=== PATIENT | male | born 1950 | race Caucasian/White ===

== ENCOUNTER 2020-12-15 20:05 | Observation (INO) | payer OTHER ==
--- OUTSIDE RECORDS SUMMARY | 2020-12-15 20:07 | XMS REPORT | Clinical Summary ---
:1950 Author Organization [facility] Address [address] [place] [address] Care Team Providers Name Role Phone Asked, Pcp Primary Care Provider Unavailable Allergies Active Allergy Reactions Severity Noted Date Comments Morphine 03/27/2018 Medications Medication Sig Dispensed Refills Start Date End Date Status atorvastatin (LIPITOR) Take 40 mg by 0 Active 40 MG tablet mouth daily. aspirin (ECOTRIN) 81 MG Take 81 mg by 0 Active enteric coated tablet mouth daily. omeprazole (PriLOSEC) 20 Take 20 mg by 0 Active MG capsule mouth daily. loratadine (CLARITIN) 10 Take 10 mg by 0 Active mg tablet mouth daily. 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 Medical History Medical History Date Comments Hypercholesteremia GERD (gastroesophageal reflux disease) Seasonal allergies Social History Tobacco Use Types Packs/Day Years Used Date Never Smoker Smokeless Tobacco: Never Used Alcohol Use Drinks/Week oz/Week Comments No Sex Assigned at Date Recorded Not on file Last Filed Vital Signs Not on file Plan of Treatment Health Maintenance Due Date Last Done Comments COVID-19 VACCINE (1 of 2) 1965 COLONOSCOPY SCREENING 1999 SHINGLES VACCINES (#2) 12/04/2009 10/04/2009 65+ PNEUMOCOCCAL VACCINE (2 of 2 - 2014 06/21/2015, 0 07/08/2012 PPSV23) INFLUENZA VACCINE 07/01/2020 10/04/2016, 09/20/2015, 08/12/2014, Additional history exists Implants Implanted Type Area Aluminum Boat Inspector Device Shelf Model / Identifier Expiration Serial / Date Lot Assurity Mri Dual - [id number] Cardiac N/A: [facility] 08/30/2019 [id number] / Implanted: 03/28/2018 at [facility] (Quantity not on file) Pac emaker N/A MEDICAL [id number] / Generators [id number] Lead Pace Bipolar Is-1 Endocrdl 46cm - [id number] Cardiac Pacing N/A: [facility] [employer] 07/31/20202087TC / Implanted: 03/28/2018 at [facility] (Quantity not on file) Leads or N/A CRM [id number] / Electrodes or [id number] Accessories Tendril Sts, Pacemaker Leads, Model 2087tc/52 - [id number] Cardi ac Pacing N/A: 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
[2020-12-15] MEDS ORDERED: ASPIRIN 81 MG CHEWABLE TABLET ONE (20:44)
[2020-12-15 20:47] LABS: Basophils % 0.7 % (0-1.3); Hematocrit 42.2 % (39.6-49.0); Lymphocytes % 35.1 % (15.3-44.8); MPV 10.3 fL (7.6-11.3); RBC Red Blood Cell Count 4.56 M/uL (4.33-5.43)
[2020-12-15 20:51] LABS: Protime INR 0.94
--- NOTE | 2020-12-15 21:04 | RAD REPORT ---
EXAM DESCRIPTION: RAD - Chest Single View - 12/15/2020 8:53 pm CLINICAL HISTORY: CHEST PAIN Chest pain. COMPARISON: Chest Pa And Lat (2 Views) dated 12/14/2020 FINDINGS: Portable technique limits examination quality. Rounded nodule in the left lung base is again seen, unchanged since yesterday's study. The lungs are otherwise grossly clear. The heart is normal in size. Changes of a previous CABG noted. IMPRESSION: Stable chest since yesterday's study.
[2020-12-15 21:05] LABS: ALT/SGPT 25 U/L (12-78); AST/SGOT 20 U/L (15-37); Albumin 3.3 g/dL (3.4-5.0); Alkaline Phosphatase 81 U/L (45-117); BUN Blood Urea Nitrogen 23 mg/dL (7-18); Bicarbonate 29 mmol/L (21-32); Bilirubin Direct < 0.1 mg/dL (0-0.2); Bilirubin Total 0.3 mg/dL (0.2-1.0); Glucose Level 122 mg/dL (74-106); Magnesium 2.3 mg/dL (1.8-2.4); NT PRO-BNP 78 pg/mL (<125); Potassium 3.8 mmol/L (3.5-5.1); Protein, Total 6.8 g/dL (6.4-8.2); Sodium Level 145 mmol/L (136-145); Troponin (Emerg Dept Use Only) < 0.02 ng/mL (0.0-0.045)
--- NOTE | 2020-12-15 21:20 | EDPHYS ---
Physician Documentation [facility] Name: Karel Kendall Age: 70 yrs Sex: Male : 1950 Arrival Date: 12/15/2020 Time: 20:06 Bed 15 Private MD: ED Physician Lai Linton HPI: 12/15 20:39 This 70 yrs old Male presents to ER via Ambulatory with complaints of Chest mh7 Pain. 20:39 The patient or guardian reports chest pain that is located primarily in the anterior mh7 chest wall, left. Onset: 2 day(s) ago. The pain does not radiate. Associated signs and symptoms: Pertinent positives: shortness of breath, Pertinent negatives: abdominal pain, cough, diaphoresis, dizziness, headache, lower extremity pain, lower extremity swelling, lightheadedness, nausea, near syncope, palpitations, recent travel, syncope, vomiting. The chest pain is described as sharp. Duration: The patient or guardian reports multiple episodes, that are intermittent, that wax and wane, with no pattern. Modifying factors: The symptoms are alleviated by nothing. the symptoms are aggravated by nothing. Severity of pain: At its worst the pain was moderate last night, in the emergency department the pain has improved moderately. Historical: - Allergies: 20:27 Morphine; mg2 20:27 wheat; mg2 - Home Meds: 20:27 Aspirin Oral [Active]; Lipitor Oral [Active]; Omeprazole Oral [Active]; mg2 - PMHx: 20:27 dyslipidemia; heart burn; mg2 - PSHx: 20:27 Cholecystectomy; cabg; mg2 - Immunization history:: Flu vaccine status is unknown. - Social history:: Smoking status: unknown. ROS: 20:39 Constitutional: Negative for fever, chills, and weight loss, Eyes: Negative for injury, mh7 pain, redness, and discharge, ENT: Negative for injury, pain, and discharge, Neck: Negative for injury, pain, and swelling, Abdomen/GI: Negative for abdominal pain, nausea, vomiting, diarrhea, and constipation, Back: Negative for injury and pain, : Negative for injury, bleeding, discharge, and swelling, MS/Extremity: Negative for injury and deformity, Skin: Negative for injury, rash, and discoloration, Neuro: Negative for headache, weakness, numbness, tingling, and seizure, Psych: Negative for depression, anxiety, suicide ideation, homicidal ideation, and hallucinations, Allergy/Immunology: Negative for hives, rash, and allergies, Endocrine: Negative for neck swelling, polydipsia, polyuria, polyphagia, and marked weight changes, Hematologic/Lymphatic: Negative for swollen nodes, abnormal bleeding, and unusual bruising. Exam: 20:39 Constitutional: This is a well developed, well nourished patient who is awake, alert, mh7 and in no acute distress. Head/Face: Normocephalic, atraumatic. Eyes: Pupils equal round and reactive to light, extra-ocular motions intact. Lids and lashes normal. Conjunctiva and sclera are non-icteric and not injected. Cornea within normal limits. Periorbital areas with no swelling, redness, or edema. Neck: Trachea midline, no thyromegaly or masses palpated, and no cervical lymphadenopathy. Supple, full range of motion without nuchal rigidity, or vertebral point tenderness. No Meningismus. Chest/axilla: Normal chest wall appearance and motion. Nontender with no deformity. No lesions are appreciated. Cardiovascular: Regular rate and rhythm with a normal S1 and S2. No gallops, murmurs, or rubs. Normal PMI, no JVD. No pulse deficits. Respiratory: Lungs have equal breath sounds bilaterally, clear to auscultation and percussion. No rales, rhonchi or wheezes noted. No increased work of breathing, no retractions or nasal flaring. Abdomen/GI: Soft, non-tender, with normal bowel sounds. No distension or tympany. No guarding or rebound. No evidence of tenderness throughout. Back: No spinal tenderness. No costovertebral tenderness. Full range of motion. Skin: Warm, dry with normal turgor. Normal color with no rashes, no lesions, and no evidence of cellulitis. MS/ Extremity: Pulses equal, no cyanosis. Neurovascular intact. Full, normal range of motion. Neuro: Awake and alert, GCS 15, oriented to person, place, time, and situation. Cranial nerves II-XII grossly intact. Motor strength 5/5 in all extremities. Sensory grossly intact. Cerebellar exam normal. Normal gait. Psych: Awake, alert, with orientation to person, place and time. Behavior, mood, and affect are within normal limits. Vital Signs: 20:23 BP 151 / 80; Pulse 87; Resp 18; Temp 97.7; Pulse Ox 100% on R/A; Weight 77.11 kg; mg2 Height 5 ft. 9 in. (175.26 cm); 21:43 BP 135 / 105; Pulse 68; Resp 18; Pulse Ox 99% on R/A; mg2 23:00 BP 149 / 95; Pulse 79; Resp 15; Pulse Ox 98% ; Pain 0/10; rr5 12/16 00:00 BP 141 / 90; Pulse 65; Resp 16; Pulse Ox 99% ; rr5 01:10 BP 129 / 75; Pulse 68; Resp 18; Pulse Ox 98% ; Pain 0/10; rr5 02:30 BP 132 / 85; Pulse 70; Resp 19; Pulse Ox 99% ; rr5 12/15 20:23 Body Mass Index 25.10 (77.11 kg, 175.26 cm) mg2 MDM: 12/15 21:17 Differential diagnosis: abnormal EKG, acute myocardial infarction, acute pericarditis, mh7 anxiety, coronary artery disease chest wall pain, congestive heart failure costochondritis, myocarditis, pericarditis, pleurisy, pneumonia, pneumothorax. HEART Score: History: Moderately Suspicious (1), ECG: Non specific repolarization disturbance / LBTB / PM (1), Age: > or = 65 years (2), Risk Factors: 1 or 2 risk factors (1), [Hypercholesterolemia] [Hypertension] Troponin: < or = 1 x Normal Limit (0), Total Score = 5. The patient was given aspirin in the Emergency Department. Data reviewed: vital signs, nurses notes, lab test result(s), cardiac enzymes, CBC, electrolytes, urinalysis, EKG, radiologic studies, plain films. Data interpreted: Pulse oximetry: on room air is 100 %. Interpretation: normal. Counseling: I had a detailed discussion with the patient and/or guardian regarding: the historical points, exam findings, and any diagnostic results supporting the discharge/admit diagnosis, the presence of at least one elevated blood pressure reading (>120/80) during this emergency department visit, lab results, radiology results, the need for further work-up and treatment in the hospital. 21:19 Patient medically screened. [facility] 12/15 20:27 Order name: Basic Metabolic Panel; Complete Time: 21:11 [facility] 12/15 20:27 Order name: CBC with Diff; Complete Time: 21:11 [facility] 12/15 20:27 Order name: LFT's; Complete Time: 21:11 [facility] 12/15 20:27 Order name: Magnesium; Complete Time: 21:11 [facility] 12/15 20:27 Order name: NT PRO-BNP; Complete Time: 21:11 [facility] 12/15 20:27 Order name: PT-INR; Complete Time: 21:11 [facility] 12/15 20:27 Order name: Troponin (emerg Dept Use Only); Complete Time: 21:11 [facility] 12/15 21:34 Order name: COVID-19 mg2 12/15 22:24 Order name: Urine Dipstick--Ancillary (enter results) [facility] 12/15 22:54 Order name: SARS-COV-2 RT PCR [facility] 12/16 01:20 Order name: Troponin I [facility] 12/16 05:54 Order name: CBC with Automated Diff [facility] 12/16 06:07 Order name: Basic Metabolic Panel [facility] 12/15 20:27 Order name: XRAY Chest (1 view); Complete Time: 21:11 [facility] 12/15 20:27 Order name: EKG; Complete Time: 20:28 [facility] 12/15 20:27 Order name: Cardiac monitoring; Complete Time: 20:37 [facility] 12/15 20:27 Order name: EKG - Nurse/Tech; Complete Time: 20:27 [facility] 12/15 20:27 Order name: IV Saline Lock; Complete Time: 20:37 [facility] 12/15 20:27 Order name: Labs collected and sent; Complete Time: 20:37 [facility] 12/15 20:27 Order name: O2 Per Protocol; Complete Time: 20:37 [facility] 12/15 20:27 Order name: O2 Sat Monitoring; Complete Time: 20:37 [facility] 12/15 21:54 Order name: CT Chest W/ Con [facility] 12/16 06:07 Order name: Lipid Profile [facility] 12/16 06:31 Order name: Troponin I [facility] 12/16 07:09 Order name: Hemoglobin A1c [facility] Administered Medications: 20:36 Drug: Aspirin Chewable Tablet 324 mg Route: PO; mg2 22:23 Follow up: Response: No adverse reaction mg2 21:39 Not Given (Patient Refused): Nitro-Bid Ointment 2 % 0.5 inches Transdermal once rr5 Disposition: 12/15/20 21:19 Hospitalization ordered by Lucy Fuentes for Observation. Preliminary diagnosis is Chest pain, unspecified. - Bed requested for [facility] ER HOLD. - Status is Observation. em - Condition is Stable. - Problem is new. - Symptoms have improved. Signatures: Dispatcher [employer] EDNM Radha Watson RN RN Clarence Lovell RN GORDO Jose Head RN RN [facility] Quinton Pelaez RN RN rr5 Lai Linton MD MD 7 Corrections: (The following items were deleted from the chart) 21:59 21:35 CORONAVIRUS ordered. EDNM EDNM 23:00 21:19 Hospitalization Ordered by Lucy Fuentes MD for Observation. Preliminary diagnosis is Chest pain, unspecified. Bed requested for Telemetry/MedSurg (observation). Status is Observation. Condition is Stable. Problem is new. Symptoms have improved. [facility] 12/16 14:09 12/15 23:00 12/15/2020 21:19 Hospitalization Ordered by Lucy Fuentes MD for em Observation. Preliminary diagnosis is Chest pain, unspecified. Bed requested for [facility] ER HOLD. Status is Observation. Condition is Stable. Problem is new. Symptoms have improved. mw
--- NOTE | 2020-12-15 21:20 | ER ---
Nurse's Notes [facility] Name: Karel Kendall Age: 70 yrs Sex: Male : 1950 Arrival Date: 12/15/2020 Time: 20:06 Bed 15 Private MD: Diagnosis: Chest pain, unspecified Presentation: 12/15 20:23 Chief complaint: Patient states: I have chest pain, burning sensation on my chest and mg2 shortness of breath for 2 days, i was here 2 days ago and cxr was done for me but i have not seen the report. Coronavirus screen: Client denies travel out of the [place] in the last 14 days. Ebola Screen: No symptoms or risks identified at this time. Initial Sepsis Screen: Does the patient meet any 2 criteria? No. Patient's initial sepsis screen is negative. Does the patient have a suspected source of infection? No. Patient's initial sepsis screen is negative. Risk Assessment: Do you want to hurt yourself or someone else? Patient reports no desire to harm self or others. Onset of symptoms was December 13, 2020. 20:23 Method Of Arrival: Ambulatory mg2 20:23 Acuity: REMA 3 mg2 Historical: - Allergies: 20:27 Morphine; mg2 20:27 wheat; mg2 - Home Meds: 20:27 Aspirin Oral [Active]; Lipitor Oral [Active]; Omeprazole Oral [Active]; mg2 - PMHx: 20:27 dyslipidemia; heart burn; mg2 - PSHx: 20:27 Cholecystectomy; cabg; mg2 - Immunization history:: Flu vaccine status is unknown. - Social history:: Smoking status: unknown. Screenin:39 Abuse screen: Denies threats or abuse. Denies injuries from another. Nutritional rr5 screening: No deficits noted. Tuberculosis screening: No symptoms or risk factors identified. Fall Risk IV access (20 points). Total Phillips Fall Scale indicates No Risk (0-24 pts). Assessment: 20:40 General: Appears in no apparent distress. comfortable, Behavior is calm, cooperative, rr5 appropriate for age. Pain: Complains of pain in chest Pain does not radiate. Pain currently is 2 out of 10 on a pain scale. Quality of pain is described as burning, Pain began gradually, Is intermittent. Neuro: Level of Consciousness is awake, alert, obeys commands, Oriented to person, place, time, situation. Cardiovascular: Capillary refill < 3 seconds Patient's skin is warm and dry. Respiratory: Reports shortness of breath Airway is patent Respiratory effort is even, unlabored, Respiratory pattern is regular, symmetrical. GI: No signs and/or symptoms were reported involving the gastrointestinal system. : No signs and/or symptoms were reported regarding the genitourinary system. EENT: No signs and/or symptoms were reported regarding the EENT system. Derm: Skin is intact, is healthy with good turgor, Skin temperature is warm. Musculoskeletal: Circulation, motion, and sensation intact. Capillary refill < 3 seconds. 21:42 Reassessment: Patient appears in no apparent distress at this time. Patient and/or mg2 family updated on plan of care and expected duration. Pain level reassessed. Patient is alert, oriented x 3, equal unlabored respirations, skin warm/dry/pink. 21:42 Reassessment: patient agreed to be admitted. Jovani-hospitalist at bedside. mg2 23:00 Reassessment: Patient appears in no apparent distress at this time. Patient is alert, rr5 oriented x 3, equal unlabored respirations, skin warm/dry/pink. Patient states feeling better. Patient states symptoms have improved. 12/16 00:00 Reassessment: Patient appears in no apparent distress at this time. Patient is alert, rr5 oriented x 3, equal unlabored respirations, skin warm/dry/pink. awaiting for room assignment. 01:30 Reassessment: Patient appears in no apparent distress at this time. Patient and/or rr5 family updated on plan of care and expected duration. Pain level reassessed. Patient is alert, oriented x 3, equal unlabored respirations, skin warm/dry/pink. 02:30 Reassessment: Patient appears in no apparent distress at this time. Patient is alert, rr5 oriented x 3, equal unlabored respirations, skin warm/dry/pink. no complaints made, watching TV Patient denies pain at this time. Vital Signs: 12/15 20:23 BP 151 / 80; Pulse 87; Resp 18; Temp 97.7; Pulse Ox 100% on R/A; Weight 77.11 kg; mg2 Height 5 ft. 9 in. (175.26 cm); 21:43 BP 135 / 105; Pulse 68; Resp 18; Pulse Ox 99% on R/A; mg2 23:00 BP 149 / 95; Pulse 79; Resp 15; Pulse Ox 98% ; Pain 0/10; rr5 12/16 00:00 BP 141 / 90; Pulse 65; Resp 16; Pulse Ox 99% ; rr5 01:10 BP 129 / 75; Pulse 68; Resp 18; Pulse Ox 98% ; Pain 0/10; rr5 02:30 BP 132 / 85; Pulse 70; Resp 19; Pulse Ox 99% ; rr5 12/15 20:23 Body Mass Index 25.10 (77.11 kg, 175.26 cm) mg2 ED Course: 12/15 20:06 Patient arrived in ED. cl3 20:13 Lai Linton MD is Attending Physician. mh7 20:23 Jose Head, GORDO is Primary Nurse. mg2 20:25 Triage completed. mg2 20:25 Arm band placed on. mg2 20:30 EKG done, by ED staff, reviewed by Lai Linton MD. rr5 20:38 Inserted saline lock: 20 gauge in right forearm, using aseptic technique. Blood rr5 collected. 20:39 Patient has correct armband on for positive identification. Placed in gown. Bed in low rr5 position. Call light in reach. monitoring engineer on. Pulse ox on. NIBP on. 20:52 XRAY Chest (1 view) In Process Unspecified. EDMS 21:19 Lucy Fuentes MD is Hospitalizing Provider. mh7 21:41 COVID swab sent to lab. mg2 12/16 03:04 No provider procedures requiring assistance completed. Patient admitted, IV remains in rr5 place. intact, No redness/swelling at site. Patient maintains SpO2 saturation greater than 95% on room air. 03:21 Report given to GORDO Lanier. mg2 11:02 Primary Nurse role handed off by Jose Head, GORDO eb Administered Medications: 12/15 20:36 Drug: Aspirin Chewable Tablet 324 mg Route: PO; mg2 22:23 Follow up: Response: No adverse reaction mg2 21:39 Not Given (Patient Refused): Nitro-Bid Ointment 2 % 0.5 inches Transdermal once rr5 Outcome: 21:19 Decision to Hospitalize by Provider. mh7 12/16 03:04 Admitted to ER Hold. Please see [facility] for further documentation. rr5 Condition: stable Instructed on the need for admit. 14:09 Patient left the ED. em Signatures: Dispatcher [employer] EDClarence Werner RN RN em Yolanda Avitia Michele, RN RN mg2 Quinton Pelaez RN RN rr5 Shaneka Weaver cl3 Lai Linton MD MD mh7 Corrections: (The following items were deleted from the chart) 12/15 21:52 21:42 Reassessment: patient agreed to be admitted mg2 mg2 21:52 21:43 Pulse 68bpm; Resp 18bpm; Pulse Ox 99% RA; mg2 mg2
[2020-12-15] MEDS ORDERED: NITROGLYCERIN 1 GM PKT TD ONE (21:33)
[2020-12-15] MEDS ORDERED: FENTANYL CITR 100 MCG/2 ML IV PRN (22:27)
[2020-12-15] MEDS ORDERED: ONDANSETRON 4 MG/2 ML VIAL IV PRN (22:27)
[2020-12-15 22:45] VITALS: BMI 25.1
--- NOTE | 2020-12-16 01:20 | P.HP ---
Certification for Inpatient Patient admitted to: Observation With expected LOS: <2 Midnights Patient will require the following post-hospital care: None Practitioner: I am a practitioner with admitting privileges, knowledge of patient current condition, hospital course, and medical plan of care. Services: Services provided to patient in accordance with Admission requirements found in Title 42 Section 412.3 of the Code of Federal Regulations <Juan Jose Salter - Last Filed: 12/16/20 01:15> Patient History Date of Service: 12/16/20 Primary Care Provider: OOT Reason for admission: Chest pain, Dyspnea History of Present Illness: This is a 70-year-old male with a history of hypercholesterolemia, coronary artery disease, triple bypass, that presents to the emergency room with chest pain and exertional shortness of breath that started days ago. Patient stated that when he was exercising he started get a burning sensation in his lungs. Patient stated that he has also had some chest pain today as well as stabbing in nature. Was concerned because he normally does not have any chest pain. Patient was worked up in the emergency room and found to have a sodium of 145, potassium 3.8, chloride 111, bicarb 28, BUN 23, creatinine 1.04, glucose 122. Patient had a white cell count of 5.7, hemoglobin 14.4, hematocrit 42.2, platelet 133. Patient had a BNP of 78, troponin is 0.02 with a negative chest x- ray. CT of the chest was also completed as patient had a left lower lobe nodule present. Calcified granuloma noted on CT without any other acute findings. Patient subsequently found to be COVID positive in the emergency room as well. Medicine was consulted at that time for observation admission secondary to the atypical chest pain. Home medications list reviewed: Yes - Past Medical/Surgical History Has patient received pneumonia vaccine in the past: No Diabetic: Yes - Family History Family History: Reviewed- Non-Contributory - Social History Smoking Status: Unknown if ever smoked Smoking therapy provided: No Alcohol use: No CD- Drugs: No Caffeine use: Yes Place of Residence: Home <Juan Jose Salter - Last Filed: 12/16/20 01:15> Date of Service: 12/16/20 - Past Medical/Surgical History Past Medical History: Patient denies medical history Past Surgical History: Patient denies surgical history <Lucy Fuentes - Last Filed: 12/20/20 03:40> Allergies morphine Allergy (Verified 12/15/20 22:27) Rash wheat Allergy (Verified 12/15/20 22:27) Rash Review of Systems General: Unremarkable Eyes: Unremarkable ENT: Unremarkable Respiratory: SOB with Excertion Cardiovascular: Chest Pain Gastrointestinal: Unremarkable Genitourinary: Unremarkable Musculoskeletal: Unremarkable Integumentary: Unremarkable Neurological: Unremarkable Lymphatics: Unremarkable <Juan Jose Salter - Last Filed: 12/16/20 01:15> 10-point ROS is otherwise unremarkable <Lucy Fuentes - Last Filed: 12/20/20 03:40> Physical Examination - Vital Signs Temperature: 97.7 F Blood Pressure: 151/80 Pulse: 87 Respirations: 18 Pulse Ox (%): 100 (Room air) - Physical Exam General: Alert, In no apparent distress, Oriented x3, Cooperative HEENT: PERRLA, Mucous membr. moist/pink, EOMI Neck: Supple, 2+ carotid pulse no bruit, JVD not distended, No Thyromegaly Respiratory: Clear to auscultation bilaterally, Normal air movement Cardiovascular: No edema, Normal pulses, Regular rate/rhythm, Normal S1 S2, No gallops, No rubs, No murmurs Capillary refill: <2 Seconds Gastrointestinal: Normal bowel sounds, Soft and benign, Non-distended, No ascites, No tenderness, No masses, No rebound, No guarding Musculoskeletal: No clubbing, No swelling, No contractures, No erythema, No tenderness, No warmth Integumentary: No rashes, No breakdown, No significant lesion, No tenderness/swelling, No erythema, No warmth, No cyanosis Neurological: Normal speech, Normal strength at 5/5 x4 extr, Normal tone, Sensation intact, Cranial nerves 3-12 intact, Normal affect Lymphatics: No axilla or inguinal lymphadenopathy - Studies Laboratory Data (last 24 hrs) 12/15/20 20:35: PT 11.1, INR 0.94 12/15/20 20:35: WBC 5.7, Hgb 14.4, Hct 42.2, Plt Count 133 L 12/15/20 20:35: Sodium 145, Potassium 3.8, BUN 23 H, Creatinine 1.04, Glucose 122 H, Magnesium 2.3, Total Bilirubin 0.3, AST 20, ALT 25, Alkaline Phosphatase 81 <Juan Jose Salter - Last Filed: 12/16/20 01:15> - Physical Exam General: Alert, In no apparent distress, Oriented x3 HEENT: Atraumatic, PERRLA, Mucous membr. moist/pink, EOMI, Sclerae nonicteric Neck: Supple, 2+ carotid pulse no bruit, JVD not distended, No LAD, Without JVD or thyroid abnormality Respiratory: Clear to auscultation bilaterally, Normal air movement Cardiovascular: No edema, Normal pulses, Regular rate/rhythm, Normal S1 S2 Gastrointestinal: Normal bowel sounds, No tenderness Musculoskeletal: No tenderness Integumentary: No rashes Neurological: Normal gait, Normal speech, Normal strength at 5/5 x4 extr, Normal tone, Normal affect Lymphatics: No axilla or inguinal lymphadenopathy <Lucy Fuentes - Last Filed: 12/20/20 03:40> Assessment and Plan - Problems (Diagnosis) (1) Hypertension Status: Chronic Plan: We will continue to monitor patient's blood pressure in the inpatient setting. We will control blood pressure to a systolic less than 160 diastolic less than 100 Qualifiers: Hypertension type: unspecified Qualified Code(s): I10 - Essential (primary) hypertension (2) Hypercholesterolemia Status: Chronic Plan: We will check lipid panel for in the morning to ensure cholesterol levels are reasonable level based on medical history. Adjust medications as needed (3) Coronary artery disease Status: Chronic Qualifiers: Coronary Disease-Associated Artery/Lesion type: [place] artery [place] vs. transplanted heart: [place] heart Associated angina: without angina Qualified Code(s): I25.10 - Atherosclerotic heart disease of [place] coronary artery without angina pectoris (4) History of coronary artery bypass graft x 3 Status: Inactive (5) Chest pain Status: Acute Plan: Patient presenting with atypical chest pain. We will consult Cardiology due to his history of coronary bypass graft and coronary artery disease. Suspect that this may be in combination with his exertional shortness of breath that could be tied to new diagnosis of COVID 19 Qualifiers: Chest pain type: unspecified Qualified Code(s): R07.9 - Chest pain, unspecified (6) COVID-19 Status: Acute Plan: We will continue to monitor patient's respiratory status and pulse oximetry wall admitted. Will start patient on steroids if needed and other medications prophylactically. Discharge Plan: Home Plan to discharge in: 24 Hours - Advance Directives Does patient have a Living Will: No Does patient have a Durable POA for Healthcare: No - Code Status/Comfort Care Code Status Assessed: Yes Code Status: Full Code Critical Care: No Time Spent Managing Pts Care (In Minutes): 80 <Juan Jose Salter - Last Filed: 12/16/20 01:15> - Problems (Diagnosis) (1) COVID-19 Status: Acute (2) Chest pain Status: Acute Qualifiers: Chest pain type: unspecified Qualified Code(s): R07.9 - Chest pain, unspecified (3) Coronary artery disease Status: Chronic Qualifiers: Coronary Disease-Associated Artery/Lesion type: [place] artery [place] vs. transplanted heart: [place] heart Associated angina: without angina Qualified Code(s): I25.10 - Atherosclerotic heart disease of [place] coronary artery without angina pectoris (4) Hypercholesterolemia Status: Chronic (5) History of coronary artery bypass graft x 3 Status: Inactive - Plan Plan: 1. Continue with IV hydration 2. Instal platelet therapy 3. Continue with Anticoagulation 4. CPatient continued to gradually improve at this time. We will monitor patient closely <Lucy Fuentes - Last Filed: 12/20/20 03:40>
[2020-12-16 05:12] VITALS: O2SAT 98
[2020-12-16 05:52] LABS: Absolute Lymphocytes (CBC) 1.5 K/uL (0.7-4.9); Basophils % 0.5 % (0-1.3); Hematocrit 40.8 % (39.6-49.0); Lymphocytes % 25.3 % (15.3-44.8); MPV 10.6 fL (7.6-11.3); RBC Red Blood Cell Count 4.41 M/uL (4.33-5.43)
[2020-12-16 06:06] LABS: BUN Blood Urea Nitrogen 20 mg/dL (7-18); Bicarbonate 23 mmol/L (21-32); Glucose Level 116 mg/dL (74-106); HDL Cholesterol 48 mg/dL (40-60); LDL Cholesterol, Calculated 52 (<130); Potassium 3.4 mmol/L (3.5-5.1); Sodium Level 143 mmol/L (136-145)
[2020-12-16] MEDS ORDERED: ASPIRIN EC 81 MG TAB PO ONE (07:38)
[2020-12-16 08:05] VITALS: BP 128/66; TEMP 97.5
[2020-12-16] MEDS ORDERED: ASPIRIN EC 81 MG TAB PO SCH (09:00)
[2020-12-16] MEDS ORDERED: PNEUMOCOCCAL VACCINE 0.5 ML IMVAC ONE (11:00)
--- NOTE | 2020-12-16 13:24 | P.DS ---
Discharge Date: 12/16/20 Primary Care Provider: EMILY Disposition: ROUTINE DISCHARGE Discharge Condition: GOOD Reason for Admission: Chest pain, Dyspnea Brief History of Present Illness: Patient is a 70-year-old gentleman who came into the hospital for admission for COVID-19 Pneumonia. Patient was having some chest pain and wanted to come in to get evaluated. Hospital Course: Patient's workup was unremarkable. Patient will have further outpatient workup with cardiology at discharge and once his viral infection is cleared. Vital Signs/Physical Exam: Temp Pulse Resp BP Pulse Ox 97.5 F 61 18 128/66 98 12/16/20 08:00 12/16/20 08:00 12/16/20 08:00 12/16/20 08:00 12/16/20 08:00 General: Alert, In no apparent distress, Oriented x3 Laboratory Data at Discharge: WBC 6.0 K/uL (4.3-10.9) 12/16/20 05:40 Hgb 14.0 g/dL (13.6-17.9) 12/16/20 05:40 Hct 40.8 % (39.6-49.0) 12/16/20 05:40 Plt Count 132 K/uL (152-406) L 12/16/20 05:40 PT 11.1 SECONDS (9.5-12.5) 12/15/20 20:35 INR 0.94 12/15/20 20:35 Sodium 143 mmol/L (136-145) 12/16/20 05:40 Potassium 3.4 mmol/L (3.5-5.1) L 12/16/20 05:40 BUN 20 mg/dL (7-18) H 12/16/20 05:40 Creatinine 0.84 mg/dL (0.55-1.3) 12/16/20 05:40 Glucose 116 mg/dL (74-106) H 12/16/20 05:40 Magnesium 2.3 mg/dL (1.8-2.4) 12/15/20 20:35 Total Bilirubin 0.3 mg/dL (0.2-1.0) 12/15/20 20:35 AST 20 U/L (15-37) 12/15/20 20:35 ALT 25 U/L (12-78) 12/15/20 20:35 Alkaline Phosphatase 81 U/L (45-117) 12/15/20 20:35 Troponin I 0.02 ng/mL (0.0-0.045) 12/16/20 05:40 Triglycerides 130 mg/dL (<150) 12/16/20 05:40 Cholesterol 126 mg/dL (<200) 12/16/20 05:40 HDL Cholesterol 48 mg/dL (40-60) 12/16/20 05:40 Cholesterol/HDL Ratio 2.63 12/16/20 05:40 Home Medications: Albuterol Inhaler [Ventolin Inhaler*] 2 puff IH Q6H PRN #1 hfa.aer.ad 12/16/20 Aspirin [Aspirin EC 81 MG] 81 mg PO DAILY 12/16/20 Atorvastatin Calcium [Lipitor*] 20 mg PO BEDTIME 12/16/20 Benzonatate [Tessalon Perle] 200 mg PO TIDP PRN #30 cap 12/16/20 Methylprednisolone [Medrol dosepack] 4 mg PO DIRECTED #1 marisel 12/16/20 Omeprazole [Prilosec] 40 mg PO DAILY 12/16/20 New Medications: Methylprednisolone [Medrol dosepack] 4 mg PO DIRECTED #1 marisel Benzonatate [Tessalon Perle] 200 mg PO TIDP PRN #30 cap PRN Reason: Cough Albuterol Inhaler [Ventolin Inhaler*] 2 puff IH Q6H PRN #1 hfa.aer.ad PRN Reason: Shortness Of Breath Patient Discharge Instructions: OK TO DC IV AND DC HOME. FOLLOW-UP WITH PRIMARY CARE PROVIDER IN 1-2 WEEKS. Follow-up with Cardiology in 1-[address] or TEXT [address] WELLS AT [phone] IF ANY QUESTIONS REGARDING HOSPITAL STAY. PLEASE CALL THE FLOOR AT [phone] IF ANY MEDICATION OR NURSING QUESTIONS. Diet: AHA Followup: NONE,NONE [Primary Care Provider] - Time spent managing pt's care (in minutes): 35
--- NOTE | 2020-12-16 19:14 | CON ---
Date of Consultation: 12/16/2020 Reason For Consultation: Atypical chest pain. History Of Present Illness: Mr. Kendall is a 70-year-old, has had a history of pacemaker placement, has had a history of dyslipidemia, gastroesophageal reflux disease. Came in with atypical chest pain, n egative EKG, negative chest x-ray, negative troponin. He tested positive for COVID, although does no t have pneumonia on his x-ray. He denied any nausea, vomiting, diaphoresis, PND, orthopnea, pedal ed aman, palpitation, or syncope. The patient is insisting on going home. Today, he is feeling better. He is denying any symptoms right now. Past Medical History: As stated above. Allergies: HE IS ALLERGIC TO WHEAT AND MORPHINE. Review of Systems: Negative. Social History: Negative. Family History: Noncontributory. Medications: At home include aspirin, Lipitor, Prilosec. Physical Examination: Physical examination was not done by me, but his vital signs were stable and he was afebrile. His ex amination done by admitting physicians was within normal limit. Diagnostic Data: Within normal limit. Impression And Plan: I am comfortable with Mr. Kendall going home and following up with Dr. Hand, whom he sees on an occasional basis for his history of pacemaker. No changes in medical therapy as far as I am concerned. AVERY/KATLYN Voice ID: [id number] Report ID: [id number]
--- NOTE | 2020-12-16 21:58 | RAD REPORT ---
EXAM DESCRIPTION: CT Chest With Intravenous Contrast CLINICAL HISTORY: The patient is 70 years old and is Male; PAIN TECHNIQUE: Axial computed tomography images of the chest with intravenous contrast. Sagittal and c oronal reformatted images were created and reviewed. This CT exam was performed using one or more o f the following dose reduction techniques: automated exposure control, adjustment of the mA and/or kV according to patient size, and/or use of iterative reconstruction technique. COMPARISON: No relevant prior studies available. FINDINGS: LUNGS: Large calcified granuloma within the lingula is noted. The lungs are otherwise cl ear. The tracheobronchial tree is widely patent. PLEURAL SPACE: Unremarkable. No pneumothorax. No significant effusion. HEART: No cardiomegaly. No pericardial effusion. BONES/JOINTS: Median sternotomy wires and vascular clips are present. There is no acute fractur e of the visualized axial and appendicular skeleton. SOFT TISSUES: The soft tissues are normal. VASCULATURE: No aneurysm. Vascular structures are patent. LYMPH NODES: Unremarkable. No enlarged lymph nodes. GALLBLADDER AND BILE DUCTS: Surgical clips are present in the right upper quadrant, consistent wi th previous cholecystectomy. TUBES, LINES AND DEVICES: A dual-lead left-sided pacemaker is noted. IMPRESSION: Unremarkable contrasted CT of the chest. No acute findings to explain the patient's symp toms. Electronically signed by: Tiffany White MD 12/15/2020 10:50 PM [employer] Due to temporary technical issues with the PACS/Fluency reporting system, reports are being signed by the in house radiologists without review as a courtesy to insure prompt reporting. The interpreting radiologist is fully responsible for the content of the report.
== END 2020-12-16 14:02 | disposition home or self-care (01) ==
LOC: ER 20:05 → ERHOLD 22:11
PROVIDERS: ADMIT Hospitalist; ATTEND Hospitalist
DX: U07.1 COVID-19 (principal); R07.89 Other chest pain; Z95.0 Presence of cardiac pacemaker; E78.5 Hyperlipidemia, unspecified; K21.9 Gastro-esophageal reflux disease without esophagitis; I10 Essential (primary) hypertension; E78.00 Pure hypercholesterolemia, unspecified; I25.10 Atherosclerotic heart disease of native coronary artery without angina pectoris; Z95.1 Presence of aortocoronary bypass graft; R94.31 Abnormal electrocardiogram [ECG] [EKG]
CPT/HCPCS: 93005 ×2; 85025 ×2; 80048 ×2; 36415; 83735; 85610; 80061; 80076; 83036; 84484 ×3; 83880; 71260; 71045; 99285; U0003; Q9967; G0378